=== PATIENT | female | born 1975 | race Caucasian/White ===

== ENCOUNTER 2018-07-23 08:36 | Emergency (ER) | END 2018-07-23 10:12 | disposition home or self-care (01) ==

== ENCOUNTER 2018-09-06 10:06 | Emergency (ER) | END 2018-09-06 12:44 | disposition home or self-care (01) ==

== ENCOUNTER 2019-05-08 19:28 | Emergency (ER) | payer OTHER ==
[~2019-05-08] VITALS: Ht 160 cm; Wt 89.2 kg
[~2019-05-08 19:28] MED LIST: CALC-649 PO; CEPH-443 PO; FAMO-96 PO; FERR27TA PO; IBUP-1542 PO; MAG-19 PO; METH750T93 PO; ONDA8TAB14 PO; PREN1TAB49 PO; TRAM50TA2 PO
[2019-05-08 19:31] VITALS: Ht 160 cm; Wt 89.2 kg
[2019-05-08] MEDS ORDERED: ONDANSETRON (ODT) 4 MG TAB ODT STA (19:46)
[2019-05-08] MEDS ORDERED: KETOROLAC 30 MG INJ IM STA (19:46)
[2019-05-08] MEDS ORDERED: HYDROCODONE/APAP (5/325) TAB PO ONE (20:00)
--- NOTE | 2019-05-08 20:35 | ERD ---
ER Documentation Chief Complaint Chief Complaint LOWER BACK PAIN X 4 DAYS. HPI This 43-year-old female presents with low back pain worsening over last 4 days. She has a history of degenerative disc disease. She denies any history of trauma. Denies fevers, vomiting, bowel or bladder incontinence, numbness, urinary complaints. ROS All systems reviewed and are negative except as per history of present illness. Medications Home Meds Active Scripts Tramadol HCl (Tramadol HCl) 50 Mg Tablet, 50 MG PO Q4 PRN for PAIN, #20 TAB Prov:LENO HUA MD 05/08/19 Methocarbamol* (Robaxin*) 750 Mg Tablet, 750 MG PO TID, #30 TAB Prov:LEDA MCCLELLAN DO 09/06/18 Ibuprofen* (Ibuprofen*) 600 Mg Tablet, 600 MG PO Q6H PRN for PAIN, #30 TAB Prov:LEDA MCCLELLAN DO 09/06/18 Cephalexin* (Keflex*) 500 Mg Capsule, 500 MG PO QID for 7 Days, CAP Prov:NITO GARCIA NP 07/23/18 Reported Medications Calcium Carbonate (Calcium) 1 Tab Tablet, 1 TAB PO DAILY, #1 08/05/11 Vits W-Ca,Fe,Fa(<1MG) () 1 Tab Tablet, 1 TAB PO DAILY, #1 08/05/11 Ferrous Sulfate (Iron) 1 Tab Tablet, 1 TAB PO DAILY, #1 08/05/11 Allergies Allergies: Coded Allergies: No Known Drug Allergies (Verified Allergy, Mild, 09/06/18) PMhx/Soc History of Surgery: Yes (BARTHOLIN'S CYST REMOVAL) Anesthesia Reaction: No Hx Neurological Disorder: No Hx Respiratory Disorders: No Hx Cardiac Disorders: Yes (HTN) Hx Psychiatric Problems: No Hx Miscellaneous Medical Probl: Yes (Anxiety, Depression) Hx Alcohol Use: No Hx Substance Use: No Hx Tobacco Use: No Smoking Status: Never smoker FmHx Family History: No diabetes, No coronary disease, No other Physical Exam Vitals Vital Signs Date Temp Pulse Resp B/P (MAP) Pulse Ox O2 O2 Flow FiO2 Time Delivery Rate 05/08/19 98.4 55 18 127/66 97 19:31 (86) Physical Exam Const: No acute distress Head: Atraumatic Eyes: Normal Conjunctiva ENT: Normal External Ears, Nose and Mouth. Neck: Full range of motion. No meningismus. Resp: Clear to auscultation bilaterally Cardio: Regular rate and rhythm, no murmurs Abd: Soft, non tender, non distended. Normal bowel sounds Skin: No petechiae or rashes Back: No midline or flank tenderness. Mild generalized tenderness L4-5 paraspinous area. No deformities or midline tenderness. Ext: No cyanosis, or edema Neur: Awake and alert Psych: Normal Mood and Affect Results 24 hrs Laboratory Tests Test 05/08/19 20:14 POC Beta HCG, Qualitative NEGATIVE Current Medications Medications Dose Sig/Kylie Start Time Status Last (Trade) Ordered Route PRN Stop Time Admin Dose Reason Admin Ketorolac 30 mg ONCE STAT 05/08/19 DC 05/08/19 Tromethamine IM 19:46 05/08/19 20:15 (Toradol) 19:47 1 tab ONCE ONCE 05/08/19 DC 05/08/19 Acetaminophen PO 20:00 05/08/19 20:13 / 20:01 Hydrocodone Bitart ([place] (5/325)) Ondansetron 8 mg ONCE STAT 05/08/19 DC 05/08/19 HCl (Zofran ODT 19:46 05/08/19 20:13 Odt) 19:47 Procedures/MDM hCG negative. Patient presents with nontraumatic chronic back pain worsening over the last few days. She has no signs of cauda equina syndrome, epidural abscess, history of stress fracture, dislocation, additional concerning signs or symptoms. She was treated with tramadol, continuation of her home meds of ibuprofen and gabapentin with recommended exercises, primary care follow-up and return precautions. She is given Toradol 30 milligrams a millimeter as well as [place] 5 mg by mouth here for acute pain. The patient was stable with no new complaints during the ER course. Clinically, there is no current evidence to suggest meningitis, sepsis, acute abdomen, pneumonia, stroke, acute coronary syndrome, pulmonary embolism, aortic dissection or any other emergent condition appearing to require further evaluation or hospitalization. Patient counseled regarding my diagnostic impression and care plan. Prior to discharge all questions answered. Pt agrees with treatment plan and understands strict return precautions. Pt is instructed to follow up with primary care provider within 24- 48 hours. Precautionary instructions provided including instructions to return to the ER if not improving or for any worsening or changing symptoms or concerns. Disclaimer: Inadvertent spelling and grammatical errors are likely due to EHR/dictation software use and do not reflect on the overall quality of patient care. Also, please note that the electronic time recorded on this note does not necessarily reflect the actual time of the patient encounter. Departure Diagnosis: Primary Impression: Back pain Back pain location: low back pain Chronicity: acute Back pain laterality: bilateral Sciatica presence: without sciatica Qualified Codes: M54.5 - Low back pain Condition: Stable Patient Instructions: Back Exercises, Lumbar, Back Pain (Acute Or Chronic) Referrals: JIM CARRION MD (PCP) Additional Instructions: Cheque otro vez con kamara doctor primario en el proximo sebastian or regresa para mas o nueva simptomas. LENO HUA MD May 08, 2019 20:35
[2019-05-08 21:13] VITALS: BP 105/99; PULSE 74; RESP 18
== END 2019-05-08 21:13 | disposition home or self-care (01) ==
LOC: FTE 19:28
DX: M54.5 Low back pain (principal); I10 Essential (primary) hypertension
CPT/HCPCS: 81025; 96372; J1885; Z7502; Z7610

== ENCOUNTER 2019-05-14 20:52 | Emergency (ER) | payer OTHER ==
[~2019-05-14] VITALS: Ht 160 cm; Wt 88.6 kg
[2019-05-14 21:12] VITALS: BP 140/93; PULSE 82; RESP 19; Ht 160 cm; Wt 88.6 kg
[2019-05-14] MEDS ORDERED: LORAZEPAM 0.5 MG TAB PO ONE (22:00)
--- NOTE | 2019-05-14 23:28 | ERD ---
ER Documentation Chief Complaint Chief Complaint BABIN WITH DIZZINESS X2DAYS ; HX OF HTN; DENIES CP AT THIS TIME HPI 43-year-old female presented to ED for headache heavy pressure in her chest that is rated a 9 out of 10. Patient states this is never happened to her before she states she has a history of hypertension and denies smoking. Patient also states she has a history of anxiety depression and recently got over shingles. Patient states she is allergic to any medications and she is currently taking medications for anxiety, acid reflux disorder, depression. The patient denies shortness of breath and states she is not currently coughing up anything and does not feel fever chills and no night sweats. Patient states that she has been a little more anxious than normal. ROS All systems reviewed and are negative except as per history of present illness. Medications Home Meds Active Scripts Ondansetron (Ondansetron Odt) 8 Mg Tab.rapdis, 8 MG PO Q6H PRN for NAUSEA AND/OR VOMITING, #10 TAB Prov:CHAR MONTOYA PA-C 05/14/19 Magaldrate/Simethicone* (Mylanta*) 355 Ml Susp, 30 ML PO QID PRN for GASTROINTESTINAL UPSET, #1 BOTTLE Prov:CHAR MONTOYA PA-C 05/14/19 Famotidine* (Pepcid*) 20 Mg Tablet, 20 MG PO BID for 4 Days, TAB Prov:CHAR MONTOYA PA-C 05/14/19 Tramadol HCl (Tramadol HCl) 50 Mg Tablet, 50 MG PO Q4 PRN for PAIN, #20 TAB Prov:LENO HUA MD 05/08/19 Methocarbamol* (Robaxin*) 750 Mg Tablet, 750 MG PO TID, #30 TAB Prov:LEDA MCCLELLAN DO 09/06/18 Ibuprofen* (Ibuprofen*) 600 Mg Tablet, 600 MG PO Q6H PRN for PAIN, #30 TAB Prov:LEDA MCCLELLAN DO 09/06/18 Cephalexin* (Keflex*) 500 Mg Capsule, 500 MG PO QID for 7 Days, CAP Prov:NITO GARCIA DEDENTER 07/23/18 Reported Medications Calcium Carbonate (Calcium) 1 Tab Tablet, 1 TAB PO DAILY, #1 08/05/11 Vits W-Ca,Fe,Fa(<1MG) () 1 Tab Tablet, 1 TAB PO DAILY, #1 08/05/11 Ferrous Sulfate (Iron) 1 Tab Tablet, 1 TAB PO DAILY, #1 08/05/11 Allergies Allergies: Coded Allergies: No Known Drug Allergies (Verified Allergy, Mild, 09/06/18) PMhx/Soc Medical and Surgical Hx: pt denies Surgical Hx History of Surgery: No Anesthesia Reaction: No Hx Neurological Disorder: No Hx Respiratory Disorders: No Hx Cardiac Disorders: No Hx Psychiatric Problems: No Hx Miscellaneous Medical Probl: No Hx Alcohol Use: No Hx Substance Use: No Hx Tobacco Use: No Smoking Status: Never smoker FmHx Family History: No diabetes, No coronary disease, No other Physical Exam Vitals Vital Signs Date Temp Pulse Resp B/P (MAP) Pulse Ox O2 O2 Flow FiO2 Time Delivery Rate 05/14/19 98.4 82 19 140/93 99 21:12 (109) Physical Exam GENERAL: Anxious HEENT: Atraumatic. Conjunctivae are pink. Pupils equal, round, and reactive to light. There is no scleral icterus. Tympanic membranes clear bilaterally. Oropharynx clear. No nystagmus or photophobia. NECK: C-spine is soft and supple. There is no meningismus. There is no cervical lymphadenopathy. CHEST: Clear to auscultation bilaterally. There are no rales, wheezes or rhonchi. HEART: Regular rate and rhythm. No murmurs, clicks, rubs or gallops. ABDOMEN:Soft, nontender and nondistended. Good bowel sounds. No rebound or guarding. No gross peritonitis. No gross organomegaly or masses. No Pearson sign or McBurney point tenderness. BACK: No midline or flank tenderness. Result Diagram: 05/14/19215005/14/192150 Results 24 hrs Laboratory Tests Test 05/14/19 21:51 05/14/19 21:52 05/14/19 22:42 White Blood Count 8.9 10^3/ul Red Blood Count 4.48 10^6/ul Hemoglobin 12.7 g/dl Hematocrit 38.9 % Mean Corpuscular Volume 86.8 fl Mean Corpuscular Hemoglobin 28.3 pg Mean Corpuscular 32.6 g/dl Hemoglobin Concent Red Cell Distribution Width 13.2 % Platelet Count 259 10^3/UL Mean Platelet Volume 10.0 fl Immature Granulocytes % 0.300 % Neutrophils % 63.9 % Lymphocytes % 26.6 % Monocytes % 6.3 % Eosinophils % 2.5 % Basophils % 0.4 % Nucleated Red Blood Cells % 0.0 /100WBC Immature Granulocytes # 0.030 10^3/ul Neutrophils # 5.7 10^3/ul Lymphocytes # 2.4 10^3/ul Monocytes # 0.6 10^3/ul Eosinophils # 0.2 10^3/ul Basophils # 0.0 10^3/ul Nucleated Red Blood Cells # 0.0 10^3/ul Sodium Level 139 mmol/L Potassium Level 4.3 mmol/L Chloride Level 103 mmol/L Carbon Dioxide Level 27 mmol/L Anion Gap 9 Blood Urea Nitrogen 19 mg/dl Creatinine 0.93 mg/dl Est Glomerular Filtrat > 60 mL/min Rate mL/min Glucose Level 100 mg/dl Calcium Level 9.9 mg/dl Total Bilirubin 0.4 mg/dl Direct Bilirubin 0.00 mg/dl Indirect Bilirubin 0.4 mg/dl Aspartate Amino Transf (AST/SGOT) 27 IU/L Alanine 38 IU/L Aminotransferase (ALT/SGPT) Alkaline Phosphatase 87 IU/L Troponin I < 0.012 ng/ml Total Protein 7.6 g/dl Albumin 4.5 g/dl Globulin 3.10 g/dl Albumin/Globulin Ratio 1.45 Urine Color STRAW Urine Clarity CLEAR Urine pH 6.0 Urine Specific [place] 1.010 Urine Ketones NEGATIVE mg/dL Urine Nitrite NEGATIVE mg/dL Urine Bilirubin NEGATIVE mg/dL Urine Urobilinogen NEGATIVE mg/dL Urine Leukocyte Esterase NEGATIVE Sid/ul Urine Hemoglobin NEGATIVE mg/dL Urine Glucose NEGATIVE mg/dL Urine Total Protein NEGATIVE mg/dl POC Beta HCG, Qualitative NEGATIVE Current Medications Medications Dose Sig/Kylie Start Time Status Last (Trade) Ordered Route PRN Stop Time Admin Dose Reason Admin Lorazepam 0.5 mg ONCE ONCE 05/14/19 DC 05/14/19 (Ativan) PO 22:00 05/14/19 22:06 22:01 Procedures/MDM ED course: The patient was stable throughout the ED course. The patient and/or family in formed of laboratory and diagnostic imaging results throughout the ED course. EKG: Read by Dr. lanza attending physician. EKG shows normal sinus rhythm at rate of 76 No arrhythmias, acute ST elevations or T wave changes were noted. Diagnostic imaging: Read by radiologist Gonzalo Berman Physician PROCEDURE: Two-view chest radiograph. CLINICAL INDICATION: Chest pain. TECHNIQUE: PA and Lateral views of the chest were obtained. COMPARISON: None FINDINGS: Mediastinum: No significant abnormalities. Heart: Normal Pulmonary vasculature: No visible engorgement. Lungs: Clear. Costophrenic sulci: Clear. Bony structures: Grossly unremarkable for age. Chest wall: Mild scoliosis. Upper abdomen: Unremarkable. IMPRESSION: 1. Unremarkable chest. Procedures: None Medications given in ER: Ativan Patient tolerated medication well with no adverse reactions. Patient reported improvement in pain. Medical decision making: Is a 43-year-old female presented to ED for 9 out of 10 chest pain and concerns that she is having a heart attack. Patient has history of hypertension, anxiety and depression. Patient was given Ativan and had a cardiac work-up. Patient's chest x-ray and EKG was unremarkable. Patient's blood work was unremarkable. Patient had no abdominal pain on palpation no right upper quadrant tenderness lungs were clear bilateral pain could not be reproduced. Upon reevaluation the patient appears to be doing much better and states that the pain has resided. There is no elevation in troponin, leukocytosis. At this time I have low suspicion for sepsis, pericarditis, pneumonia, VT. The patient does have a history of GERD and states the symptoms are worsened with food. Advised patient that she needs follow-up with primary care provider in 1 to 2 days regarding this visit. Advised patient if symptoms worsen return to ER immediately. Patient is comfortable with the treatment plan and had no further concerns or questions upon discharge Prescription for home: Liz Waters I have discussed with the patient proper use and common side effects to expert with the medication . I advised the patient/family to speak with the pharmacist dispensing the medication to be advised of any potential drug interactions with other medication or supplements they may be taking. Discharge: At this time, patient is stable for discharge and outpatient management. I have instructed the patient to follow-up with his\her primary care physician in 1 to 2 days. I have discussed with the patient the possibility of needing to see a specialist for further work-up and imaging studies if symptoms persist. I have instructed the patient to promptly return to the ER for any new or worsening symptoms including increased pain, fever, nausea, vomiting, weakness or LOC. The patient and\or family expressed understanding of and agreement with this pl an. All questions were answered. Home care instructions were provided. Disclaimer: Inadvertent spelling and grammatical errors are likely due to EHR\dictation software use and do not reflect on the overall quality of patient care. Also, please note that the electronic time recorded on the note does not necessarily reflect the actual time of the patient encounter. Departure Diagnosis: Primary Impression: GERD (gastroesophageal reflux disease) Esophagitis presence: without esophagitis Qualified Codes: K21.9 - Gastro- esophageal reflux disease without esophagitis Additional Impression: Headache Headache type: unspecified Headache chronicity pattern: unspecified pattern Intractability: intractable Qualified Codes: R51 - Headache Condition: Stable Patient Instructions: Gerd (Adult) Referrals: [facility] YOU HAVE RECEIVED A MEDICAL SCREENING EXAM AND THE RESULTS INDICATE THAT YOU DO NOT HAVE A CONDITION THAT REQUIRES URGENT TREATMENT IN THE EMERGENCY DEPARTMENT. FURTHER EVALUATION AND TREATMENT OF YOUR CONDITION CAN WAIT UNTIL YOU ARE SEEN IN YOUR DOCTORS OFFICE WITHIN THE NEXT 1-2 DAYS. IT IS YOUR RESPONSIBILITY TO MAKE AN APPOINTMENT FOR FOLOW-UP CARE. IF YOU HAVE A PRIMARY DOCTOR --you should call your primary doctor and schedule an appointment IF YOU DO NOT HAVE A PRIMARY DOCTOR YOU CAN CALL OUR PHYSICIAN REFERRAL HOTLINE AT IF YOU CAN NOT AFFORD TO SEE A PHYSICIAN YOU CAN CHOSE FROM THE FOLLOWING [facility] [address] [facility]. [facility] [address] [facility]. [facility] [address] [facility] [facility] [address] [facility] [facility] [address] [facility]. [facility]. [address] [facility]. [facility] YOU HAVE RECEIVED A MEDICAL SCREENING EXAM AND THE RESULTS INDICATE THAT YOU DO NOT HAVE A CONDITION THAT REQUIRES URGENT TREATMENT IN THE EMERGENCY DEPARTMENT. FURTHER EVALUATION AND TREATMENT OF YOUR CONDITION CAN WAIT UNTIL YOU ARE SEEN IN YOUR DOCTORS OFFICE WITHIN THE NEXT 1-2 DAYS. IT IS YOUR RESPONSIBILITY TO MAKE AN APPOINTMENT FOR FOLOW-UP CARE. IF YOU HAVE A PRIMARY DOCTOR --you should call your primary doctor and schedule and appointment IF YOU DO NOT HAVE A PRIMARY DOCTOR YOU CAN CALL OUR PHYSICIAN REFERRAL HOTLINE AT . IF YOU CAN NOT AFFORD TO SEE A PHYSICIAN YOU CAN CHOSE FROM THE FOLLOWING [facility] INSTITUTIONS: [facility] [address] [place] [address] [facility] [address] [place] [address] [facility] [address] [place] [address] Additional Instructions: Call your primary care doctor TOMORROW for an appointment during the next 1-2 days.See the doctor sooner or return here if your condition worsens before your appointment time. CHAR MONTOYA PA-C May 14, 2019 23:27
== END 2019-05-14 23:44 | disposition home or self-care (01) ==
LOC: FTE 20:52
DX: K21.9 Gastro-esophageal reflux disease without esophagitis (principal)
CPT/HCPCS: 71046; 80053; 81003; 81025; 84484; 85025; Z7502; Z7610; 93005